=== PATIENT | male | born 1950 | race Hispanic/Latino ===

== ENCOUNTER 2020-06-16 14:37 | Inpatient (IN) | payer MEDICARE, OTHER ==
[~2020-06-16] VITALS: Ht 170.2 cm; Wt 62.7 kg
[2020-06-16 15:05] LABS: BASOPHILS % (AUTO) 0.6 % (0.0-5.0); EOSINOPHILS % (AUTO) 1.8 % (0.0-8.0); HEMATOCRIT 50.9 % (42-54); LYMPHOCYTES % (AUTO) 22.4 % (21.0-51.0); MEAN CORPUSCULAR HEMOGLOBIN 30.5 pg (27.0-33.0); MEAN CORPUSCULAR HGB CONC 33.4 g/dL (32.0-36.0); MEAN CORPUSCULAR VOLUME 91.4 fL (79-99); MONOCYTES % (AUTO) 7.4 % (3.0-13.0); NEUTROPHILS % (AUTO) 67.6 % (40.0-77.0); PLATELET COUNT (AUTO) 390 K/uL (130-400); RED BLOOD CELL COUNT(AUTO) 5.57 MIL/uL (4.50-6.20); RED CELL DISTRIBUTION WIDTH 12.8 % (11.0-15.5); WHITE BLOOD COUNT (AUTO) 14.2 K/uL (4.8-10.8)
[2020-06-16 15:23] LABS: CREATININE 0.8 mg/dL (0.5-1.5); POTASSIUM 3.5 mmol/L (3.5-5.1)
[2020-06-16 15:27] LABS: ALBUMIN 3.9 g/dL (3.5-5.0); BILIRUBIN,TOTAL 0.4 mg/dL (0.2-1.0); TOTAL PROTEIN, SERUM 8.9 g/dL (6.0-8.3)
[2020-06-16] MEDS ORDERED: PANTOPRAZOLE 40 MG/VIAL ONE (15:42)
[2020-06-16] MEDS ORDERED: ONDANSETRON HCL 4 MG/2 ML VIAL ONE (15:42)
[2020-06-16] MEDS ORDERED: MORPHINE SULFATE 4 MG/1ML SYG ONE (15:42)
[2020-06-16] MEDS: LACTATED RINGERS 1000ML 1,000 ML IV SCH (17:29)
[2020-06-16] MEDS ORDERED: LACTULOSE 20 GM/30 ML UDCUP PO PRN (17:30)
[2020-06-16] MEDS ORDERED: MORPHINE SULFATE 2 MG/ML 1ML SYG IV PRN (17:30)
[2020-06-16] MEDS ORDERED: ONDANSETRON HCL 4 MG/2 ML VIAL IVP PRN (17:30)
[2020-06-16] MEDS: FAMOTIDINE/PF 20 MG/2 ML VIAL IV SCH (21:00)
[2020-06-16] MEDS ORDERED: FAMOTIDINE/PF 20 MG/2 ML VIAL IV ONE (21:35)
[2020-06-16 22:44] VITALS: BP 145/84
--- NOTE | 2020-06-16 23:34 | NUR ---
ADMIT Admitted from ER,aao x 3,ngt to rt nare in place,placement verified via auscultation and aspiration.connected to Low intermittent wal suction.Pt instructed re NPO status.Abdomen firm,hypoactive bowel sounds.Denies any pain or sob.Admission care rendered.
[2020-06-17 04:42] VITALS: BP 109/67
[2020-06-17] MEDS: LACTATED RINGERS 1000ML 1,000 ML IV SCH ×2 (05:30→13:38)
[2020-06-17 05:42] LABS: BASOPHILS % (AUTO) 0.7 % (0.0-5.0); EOSINOPHILS % (AUTO) 2.1 % (0.0-8.0); HEMATOCRIT 42.3 % (42-54); LYMPHOCYTES % (AUTO) 23.9 % (21.0-51.0); MEAN CORPUSCULAR HEMOGLOBIN 30.4 pg (27.0-33.0); MEAN CORPUSCULAR HGB CONC 33.6 g/dL (32.0-36.0); MEAN CORPUSCULAR VOLUME 90.6 fL (79-99); MONOCYTES % (AUTO) 8.6 % (3.0-13.0); NEUTROPHILS % (AUTO) 64.4 % (40.0-77.0); PLATELET COUNT (AUTO) 217 K/uL (130-400); RED BLOOD CELL COUNT(AUTO) 4.67 MIL/uL (4.50-6.20); RED CELL DISTRIBUTION WIDTH 12.7 % (11.0-15.5); WHITE BLOOD COUNT (AUTO) 12.2 K/uL (4.8-10.8)
[2020-06-17 05:59] LABS: ALBUMIN 2.9 g/dL (3.5-5.0); BILIRUBIN,TOTAL 0.5 mg/dL (0.2-1.0); CREATININE 0.6 mg/dL (0.5-1.5); POTASSIUM 3.9 mmol/L (3.5-5.1); TOTAL PROTEIN, SERUM 6.8 g/dL (6.0-8.3)
--- NOTE | 2020-06-17 06:24 | NUR ---
FLATUS Pt passing gas,ambulated to the bathroom,lucia well.
[2020-06-17 07:45] VITALS: BP 122/71
[2020-06-17] MEDS: FAMOTIDINE/PF 20 MG/2 ML VIAL IV SCH ×2 (08:58→20:32)
[2020-06-17] MEDS ORDERED: PNEUMOCOCCAL VACCINE POLYVALENT 0.5 ML/VIAL [PPV] IM SCH (09:00)
[2020-06-17 11:51] VITALS: BP 126/69
--- NOTE | 2020-06-17 12:51 | NUR ---
RD NOTIFICATION Pt admitted with SBO. NPO pending surgical evaluation. Monitored labs: BUN 6, ALT 11, Alb 2.9. LBM 06/16/20 with constipation as per EMR. Recommend continue NPO pending Surgical Evaluation RD to continue to monitor. Please notify as additional nutrition concerns arise. Thank you. Addendum: 06/17/20 at [address] RD Amended: Links added.
--- NOTE | 2020-06-17 15:23 | NUR ---
MITUL - TALKED TO LIVE IN GIRLFRIEND ADRIANA DICKINSON [place] PLANNING- PATIENT IS AMBULATORY AND INDEPENDENT, USES A CANE ON OCCASION, DRIVES, NO STAIRS IN THE HOME, SMALL APT WITH TINY BATHROOM, NO SHOWER CHAIR AT THIS TIME, UPDATED FACE SHEET WITH PHYSICAL ADDRESS A Addendum: 06/17/20 at 1528 by KIRA AVILA RN CM Amended: Links added.
--- NOTE | 2020-06-17 15:33 | NUR ---
SPOKE TO DAUGHTER EDMUND HENRY: PATIENTS PLAN OF CARE STATES THAT HE GOT OUT OF [facility] A WEEK AGO AND COULD NOT HOLD ANY THING DOWN. WILL PUT IN REFERRAL FOR CASING SPLITTER CONSULT FOR WHEN PATIENT IS ABLE TO RESUME DIET.
[2020-06-17 16:00] VITALS: BP 141/68
[2020-06-17 20:29] VITALS: BP 130/67
[2020-06-17] MEDS: SODIUM CHLORIDE 0.9% 1000ML 1,000 ML IV SCH (20:33)
[2020-06-17 23:39] VITALS: BP 122/84
[2020-06-18 03:53] VITALS: BP 131/61
[2020-06-18] MEDS: SODIUM CHLORIDE 0.9% 1000ML 1,000 ML IV SCH ×2 (05:35→22:35)
[2020-06-18 05:44] LABS: BASOPHILS % (AUTO) 0.6 % (0.0-5.0); EOSINOPHILS % (AUTO) 2.6 % (0.0-8.0); HEMATOCRIT 37.7 % (42-54); LYMPHOCYTES % (AUTO) 22.4 % (21.0-51.0); MEAN CORPUSCULAR HEMOGLOBIN 30.1 pg (27.0-33.0); MEAN CORPUSCULAR HGB CONC 33.4 g/dL (32.0-36.0); MONOCYTES % (AUTO) 6.8 % (3.0-13.0); NEUTROPHILS % (AUTO) 67.3 % (40.0-77.0); PLATELET COUNT (AUTO) 211 K/uL (130-400); RED BLOOD CELL COUNT(AUTO) 4.19 MIL/uL (4.50-6.20); RED CELL DISTRIBUTION WIDTH 12.5 % (11.0-15.5); WHITE BLOOD COUNT (AUTO) 10.5 K/uL (4.8-10.8)
[2020-06-18 06:16] LABS: ALBUMIN 2.8 g/dL (3.5-5.0); BILIRUBIN,TOTAL 0.6 mg/dL (0.2-1.0); CREATININE 0.6 mg/dL (0.5-1.5); POTASSIUM 3.7 mmol/L (3.5-5.1); TOTAL PROTEIN, SERUM 6.4 g/dL (6.0-8.3)
[2020-06-18 08:06] VITALS: BP 125/59
[2020-06-18] MEDS: FAMOTIDINE/PF 20 MG/2 ML VIAL IV SCH ×2 (08:44→22:28)
[2020-06-18] MEDS ORDERED: PHENOL 177 ML BOTTLE PO PRN (10:45)
[2020-06-18 11:41] VITALS: BP 120/60
--- NOTE | 2020-06-18 11:55 | NUR ---
SHAHIDA SALAZAR SPOKE TO [facility] STAFF DEVELOPMENT EDUCATOR DR. PALACIOS IS AWARE OF CONSULT FOR PATIENT AND WILL BE SEE HIM TODAY.
--- NOTE | 2020-06-18 14:01 | NUR ---
RN-ASSISTED NUTRITION EDUCATION RD faxed [place] High Fiber Nutrition Therapy education to [phone]). Total:8 pages. Called [facility], no answer. Encourage fiber intake and adequate water intake of 8-9 cups of water per day. Pt currently NPO. RD to follow up. Addendum: 06/18/20 at [address] Amended: Links added.
[2020-06-18 15:53] VITALS: BP 125/57
[2020-06-18 19:57] VITALS: BP 129/56
[2020-06-19] VITALS (7 sets, daily range): BP systolic 115–156; BP diastolic 62–82
[2020-06-19 05:41] LABS: BASOPHILS % (AUTO) 0.6 % (0.0-5.0); HEMATOCRIT 41.6 % (42-54); LYMPHOCYTES % (AUTO) 21.7 % (21.0-51.0); MEAN CORPUSCULAR HEMOGLOBIN 30.7 pg (27.0-33.0); MEAN CORPUSCULAR HGB CONC 33.9 g/dL (32.0-36.0); MEAN CORPUSCULAR VOLUME 90.6 fL (79-99); MONOCYTES % (AUTO) 7.5 % (3.0-13.0); PLATELET COUNT (AUTO) 219 K/uL (130-400); RED BLOOD CELL COUNT(AUTO) 4.59 MIL/uL (4.50-6.20); RED CELL DISTRIBUTION WIDTH 12.6 % (11.0-15.5); WHITE BLOOD COUNT (AUTO) 10.1 K/uL (4.8-10.8)
[2020-06-19 06:10] LABS: BILIRUBIN,TOTAL 0.6 mg/dL (0.2-1.0); CREATININE 0.7 mg/dL (0.5-1.5); POTASSIUM 3.8 mmol/L (3.5-5.1); TOTAL PROTEIN, SERUM 6.9 g/dL (6.0-8.3)
[2020-06-19] MEDS: FAMOTIDINE/PF 20 MG/2 ML VIAL IV SCH ×2 (10:58→20:39)
[2020-06-19] MEDS: SODIUM CHLORIDE 0.9% 1000ML 1,000 ML IV SCH (10:58)
--- NOTE | 2020-06-19 15:30 | NUR ---
PER MD ORDERS DC'D PT NG TUBE. PT TOLERATED WELL WITH SLIGHT DISCOMFORT. DENIES ANY PAIN OR NEED FOR PAIN MEDICATION AT THIS MOMENT. PT STATES PASSING GAS AND NOTED SMALL SEMI FORMED DARK BROWN STOOL IN TOILET. PT ALSO STATES TOLERATING MEAL/DIET WELL. WILL CONTINUE TO MONITOR PT.
[2020-06-20] MEDS: SODIUM CHLORIDE 0.9% 1000ML 1,000 ML IV SCH (01:39)
[2020-06-20 04:00] VITALS: BP 139/69
[2020-06-20 06:12] LABS: BASOPHILS % (AUTO) 0.5 % (0.0-5.0); EOSINOPHILS % (AUTO) 2.6 % (0.0-8.0); HEMATOCRIT 41.3 % (42-54); LYMPHOCYTES % (AUTO) 18.9 % (21.0-51.0); MEAN CORPUSCULAR HEMOGLOBIN 30.7 pg (27.0-33.0); MEAN CORPUSCULAR HGB CONC 33.9 g/dL (32.0-36.0); MEAN CORPUSCULAR VOLUME 90.6 fL (79-99); MONOCYTES % (AUTO) 7.8 % (3.0-13.0); NEUTROPHILS % (AUTO) 69.9 % (40.0-77.0); PLATELET COUNT (AUTO) 251 K/uL (130-400); RED BLOOD CELL COUNT(AUTO) 4.56 MIL/uL (4.50-6.20); RED CELL DISTRIBUTION WIDTH 12.6 % (11.0-15.5); WHITE BLOOD COUNT (AUTO) 12.9 K/uL (4.8-10.8)
[2020-06-20 06:47] LABS: ALBUMIN 2.8 g/dL (3.5-5.0); BILIRUBIN,TOTAL 0.5 mg/dL (0.2-1.0); CREATININE 0.7 mg/dL (0.5-1.5); POTASSIUM 3.8 mmol/L (3.5-5.1); TOTAL PROTEIN, SERUM 6.7 g/dL (6.0-8.3)
[2020-06-20 08:00] VITALS: BP 138/69
[2020-06-20] MEDS ORDERED: LACT PO (09:16)
[2020-06-20] MEDS: FAMOTIDINE/PF 20 MG/2 ML VIAL IV SCH (10:36)
[2020-06-20 12:00] VITALS: BP_SYST 120; BP_SYST 122; BP_DIAS 57; BP_DIAS 60
== END 2020-06-20 18:15 | disposition home or self-care (01) | DRG 389 ==
LOC: EDH 14:37 → EDHIP 17:29 → 3CH 21:36
PROVIDERS: ADMIT Hospitalist; ATTEND Hospitalist
PROC: 0D9670Z Drainage of Stomach with Drainage Device, Via Natural or Artificial Opening (ICD-10-PCS; principal; 2020-06-16)
DX: K56.600 Partial intestinal obstruction, unspecified as to cause (principal); K92.1 Melena; J98.11 Atelectasis; Z91.013 Allergy to seafood; Z87.891 Personal history of nicotine dependence
CPT/HCPCS: 36415; 74018; 74176; 80053; 82270; 82550; 82948; 83690; 84484; 85025; 90732; 93005; 99291; C9113; G0378; J2270; J2405; J3490; J7030; J7120